=== PATIENT | female | born 1975 | race Caucasian/White ===

== ENCOUNTER 2016-08-19 09:21 | Inpatient (IN) | payer OTHER ==
[~2016-08-19] VITALS: Ht 167.6 cm; Wt 53.3 kg
[~2016-08-19 09:21] MED LIST: AMOXICILLIN875 MG PO; BACTRIM,SEPT1 TABLET PO; CYMBALTA60 MG PO; K-DUR20 MEQ PO; NORCO 5/3251 TABLET PO; WELLBUTRIN SR150 MG PO
[2016-08-19 10:27] LABS: HEMATOCRIT 42.3 % (36.0-46.0); MCV 88.7 FL (83-99); MEAN PLAT.VOLUME 9.3 uM^3 (9.5-12.4); PLATELET COUNT 307 K/uL (156-360); RBC DIS.WIDTH-CV 13.2 % (11.8-14.6); RBC DIS.WIDTH-SD 42.4 % (39-53); RED BLOOD COUNT 4.77 M/uL (3.80-5.20); WHITE BLOOD COUNT 6.8 K/uL (4.1-10.2)
[2016-08-19 10:36] LABS: CHLORIDE 103 mEq/L (99-109); POTASSIUM 3.7 mEq/L (3.7-5.4); SODIUM 143 mEq/L (136-147)
[2016-08-19 10:38] LABS: GLUCOSE 108 mg/dL (70-99)
[2016-08-19 10:40] LABS: ANION GAP 14 MEQ/L (2-14)
[2016-08-19 10:41] LABS: SERUM ETHYL ALCOHOL 43 mg/dL
[2016-08-19 10:42] LABS: GFR ESTIMATE (CALCULATED) > 59 mL/min/
[2016-08-19 10:43] LABS: UREA NITROGEN (BUN) 8 mg/dL (9-23)
[2016-08-19 10:51] LABS: QUANTITATIVE HCG < 4.0 MIU/ML
[2016-08-19 12:03] LABS: AMPHETAMINE NEGATIVE (500 ng/mL); BARBITURATES NEGATIVE (200 ng/mL); BENZODIAZEPINES NEGATIVE (150 ng/mL); COCAINE NEGATIVE (150 ng/mL); INTERNAL CONTROLS VALID? YES; METHADONE NEGATIVE (200 ng/mL); METHAMPHETAMINE NEGATIVE (500 ng/mL); OPIATES (MORPHINE) PRESUMPTIVE POSITIVE (100 ng/mL); OXYCODONE NEGATIVE (100 ng/mL); PHENCYCLIDINE NEGATIVE (25 ng/mL); PROPOXYPHENE NEGATIVE (300 ng/mL); THC CANNABINOIDS PRESUMPTIVE POSITIVE (50 ng/mL); TRICYCLIC ANTIDEPRESSANTS NEGATIVE (300 ng/mL)
[2016-08-19 12:04] LABS: ADD MEDTOX COMMENT Y
[2016-08-19 15:37] VITALS: BP 126/70
[2016-08-20 07:47] VITALS: BP 85/54
[2016-08-20 11:52] VITALS: BP 101/56
[2016-08-20 15:33] VITALS: BP 113/54
[2016-08-21 07:51] VITALS: BP 127/63
[2016-08-21 15:29] VITALS: BP 105/68
[2016-08-21 22:41] VITALS: BP 114/72
[2016-08-22 07:48] VITALS: BP 82/51
[2016-08-22] MEDS ORDERED: BUPROPION XL300 MG PO (10:43)
[2016-08-22] MEDS ORDERED: ZOLPIDEM TARTRAT5 MG PO (10:43)
== END 2016-08-22 15:30 | disposition home or self-care (01) | DRG 885 ==
LOC: EME 09:21 → EDOF 14:35 → 1WEST 14:35
DX: F33.2 Major depressive disorder, recurrent severe without psychotic features (principal); R45.851 Suicidal ideations; F11.23 Opioid dependence with withdrawal; F10.99 Alcohol use, unspecified with unspecified alcohol-induced disorder; F12.10 Cannabis abuse, uncomplicated; F17.200 Nicotine dependence, unspecified, uncomplicated; Y90.2 Blood alcohol level of 40-59 mg/100 ml; Z91.14 Patient's other noncompliance with medication regimen
CPT/HCPCS: 80048; 84702; 84999; 85027; 90839; 97150 GO; 97165 GO; 97530 GO; 99281; 99285; G0480; Q0177